=== PATIENT | female | born 1980 | race Two or more races ===

== ENCOUNTER 2023-04-05 11:56 | Emergency (ER) | payer BC ==
[~2023-04-05] VITALS: Ht 170.2 cm; Wt 77.6 kg
[2023-04-05 11:59] VITALS: BP 150/93
[2023-04-05] MEDS ORDERED: IBUP800T26 PO (14:25)
[2023-04-05] MEDS ORDERED: TRAM50TA2 PO ×2 (14:25→14:26)
== END 2023-04-05 14:34 | disposition home or self-care (01) ==
LOC: ER 11:56
DX: S83.91XA Sprain of unspecified site of right knee, initial encounter (principal); Z98.890 Other specified postprocedural states; X58.XXXA Exposure to other specified factors, initial encounter; Y93.72 Activity, wrestling; Y92.89 Other specified places as the place of occurrence of the external cause; Y99.8 Other external cause status
CPT/HCPCS: 29505; 73562

== ENCOUNTER 2024-02-07 10:21 | Emergency (ER) | payer BC ==
[~2024-02-07] VITALS: Ht 170.2 cm; Wt 77.5 kg
[~2024-02-07 10:21] MED LIST: IBUP-1455 PO; TRAM50TA2 PO
[2024-02-07 10:34] VITALS: PULSE 85; RESP 20; TEMP 97.6; O2SAT 96
[2024-02-07 10:38] VITALS: BP 133/72; PULSE 85; RESP 20; O2SAT 96
== END 2024-02-07 12:01 | disposition home or self-care (01) ==
LOC: ER 10:21
DX: M23.8X2 Other internal derangements of left knee (principal); Z86.2 Personal history of diseases of the blood and blood-forming organs and certain disorders involving the immune mechanism; Z98.890 Other specified postprocedural states; Z79.899 Other long term (current) drug therapy
CPT/HCPCS: 73564